=== PATIENT | female | born 1955 | race Two or more races ===

== ENCOUNTER 2020-08-22 15:57 | Outpatient (CLI) | payer OTHER | END 2020-08-22 16:03 | disposition home or self-care (01) | LOC: TOM 15:57 | PROVIDERS: ATTEND Urology | DX: K57.90 Diverticulosis of intestine, part unspecified, without perforation or abscess without bleeding (principal); R31.29 Other microscopic hematuria; R31.21 Asymptomatic microscopic hematuria ==

== ENCOUNTER 2021-07-06 23:54 | Emergency (ER) | payer OTHER ==
[~2021-07-06] VITALS: Ht 157.5 cm; Wt 53.1 kg
[2021-07-07] MEDS ORDERED: LORATADINE10 MG PO (00:16)
[2021-07-07] MEDS ORDERED: SIMVASTATIN20 MG PO (00:16)
[2021-07-07] MEDS ORDERED: SYNTHROID100 MCG PO (00:16)
[2021-07-07] MEDS ORDERED: PANTOPRAZOLE SO40 MG PO (00:16)
[2021-07-07] MEDS ORDERED: LOPRESSOR25 MG PO (00:16)
== END 2021-07-07 04:30 | disposition home or self-care (01) ==
LOC: ER 23:54
DX: B34.9 Viral infection, unspecified (principal); Z03.818 Encounter for observation for suspected exposure to other biological agents ruled out